=== PATIENT | female | born 1940 | race Caucasian/White ===

== ENCOUNTER → 2017-12-29 | Outpatient (CLI) | payer BC ==
[~2017-12-29] MED LIST: CLARITIN10 MG PO; HYDROCHLOROTHIA25 M1 PO; HYDROCORTISONE30 G9; LISINOPRIL10 MG PO; METHIMAZOLE10 MG PO; OXYBUTYNIN 5 MG5 M2 PO; RELAFEN750 MG PO; ULTRAM 50MG TAB50 MG PO; thyroid PO
--- NOTE | 2018-01-03 07:00 | PAINCON ---
[facility] [address] [place] [address] PAIN MANAGEMENT CONSULTATION Name: MP WATTS Room: [facility] Malena#: [id number] Admission: 12/29/17 Attend Phys: Fish Duran Discharge: Date of : 40 Report #: [id number] THIS REPORT FOR: //name// CC: Scottie Nascimento DATE OF SERVICE: 12/29/2017 The patient is a pleasant 77-year-old female, prior seen back in May for symptomatic lumbar radiculopathy. She had right lumbar radicular pain well treated with a single epidural injection at L5-S1. Somewhat lost to follow up, she returns to pain clinic today with a little different complaint. She notes pain in the contralateral, left hip, buttock and leg for the past 6 weeks. She denies antecedent trauma. She incidentally notes that she has been having some vein work done on the contralateral (right) leg. She notes that this left low back, hip pain is similar to the prior right-sided radicular pain she had had last summer. She notes the pain is exacerbated with standing, walking and bending. Denies any myelopathic symptoms. PHYSICAL EXAMINATION: Shows a 5-foot 4-inch, 263-pound female with elevated BMI of 45.2 kilograms per meter squared. Blood pressure is 159/73, pulse 76, respirations 16. Subjective pain score is 10 on VAS. She is taking ibuprofen for pain. Alert and oriented to person, place and time, judged to be a reasonable historian. Rises from the chair using the armrest. Gait is modestly antalgic. She is tender over the left SI, but has slight decreased left plantar flexion and lower extremity flexion strength. Positive straight leg raise on the left at 30 degrees. Diffuse tenderness across the low back. No discrete trigger points noted. Some hyperpathia about the right leg in the area where she has had her recent vein sclerosis for varicose veins. DIAGNOSTIC STUDIES: There are no recent diagnostic studies available at this time, again symptoms compatible with lumbar radiculopathy with positive neural tensioning symptoms. Prior lumbar radicular symptoms on the contralateral side, well treated with epidural injection last summer, prior similar radicular symptoms treated with epidural injections 3 and 6 years prior as well. ASSESSMENT: 1. Symptomatic lumbar radiculopathy by clinical exam and history. 2. Possible component of left sacroiliac mediated pain. 3. Morbid obesity. 4. Hypertension. 5. Bladder dysfunction, currently treated with oxybutynin. 6. Hyperthyroidism, treated with methimazole. RECOMMENDATION: [place] [address] PAIN MANAGEMENT CONSULTATION Name: MP WATTS Room: [facility] Malena#: [id number] Admission: 12/29/17 Attend Phys: Fish Duran Discharge: Date of : 40 Report #: [id number] 1. Continue ibuprofen. 2. Lumbar epidural injection under fluoroscopy today at L5-S1. 3. Core strengthening exercises discussed. Encouraged walking and stretching. She does have a component of myofascial pain and left SI mediated pain; recommend massage, stretching and exercise. 4. Epidural injection under fluoroscopy today at L5-S1. 5. Follow up in 4 weeks for reevaluation, may consider left SI joint injection if indicated clinically at that time. PROCEDURE: Lumbar epidural injection under fluoroscopy. PROCEDURE NOTE: After both written and informed consent to include risk of spinal cord damage, increased pain, weakness and dural puncture, the patient was taken to the fluoroscopy suite, placed in the prone position. After sterile prep and drape, a skin wheal with lidocaine was raised. A 22-gauge epidural Tuohy needle was inserted in the midline at L5-S1 with good loss to resistance. Negative aspiration for cerebrospinal fluid or blood was noted. Then 1 mL of Omnipaque under biplanar fluoroscopy showed good spread within the epidural space. This was followed with 80 mg of triamcinolone plus 1 mL of 1.5% preservative-free Xylocaine, 0.5 mL Xylocaine was then injected to flush the needle; it was removed. The patient was monitored for an appropriate period of time and discharged in good and stable condition. <ELECTRONICALLY SIGNED> By: Tereso Nascimento DO 01/03/18 0700 [id number] Nascimento DO /nt
== END | disposition home or self-care (01) ==
LOC: M.PC 01:33
DX: M54.16 Radiculopathy, lumbar region (principal); E66.01 Morbid (severe) obesity due to excess calories; I10 Essential (primary) hypertension; E05.90 Thyrotoxicosis, unspecified without thyrotoxic crisis or storm; Z79.899 Other long term (current) drug therapy; Z68.42 Body mass index [BMI] 45.0-49.9, adult

== ENCOUNTER → 2019-03-16 | Outpatient (CLI) | payer BC ==
[~2019-03-16] MED LIST changes: +FLONASE 0.05%50 MCG NASAL; +REFLUX MED
--- NOTE | ~2019-03-16 | PAINCON ---
[address] [address] PAIN MANAGEMENT CONSULTATION Name: MP WATTS Cl Room: [facility] Malena#: [id number] Admission: 03/16/19 Attend Phys: Anna Solis MD Discharge: Date of : 40 Report #: [id number] THIS REPORT FOR: //name// CC: Scottie Kang DATE OF SERVICE: 03/16/2019 CHIEF COMPLAINT: Low back pain with pain down into the low back area. I would like to consider another epidural injection. HISTORY: The patient is a 78-year-old female who has been seen and followed in the Pain Clinic by Dr. Tereso Nascimento. This is my first visit with the patient. She has had some problems with lumbar radiculopathy. She has undergone epidural steroid injection and found those to be helpful. She has also had some sacral SI joint mediated pain. She has now noted some pain and discomfort in her left shoulder. She is also having some low back and generalized arthritic pains over the last 2 years. HISTORY OF PRESENT ILLNESS: The patient noticed onset of sinus problems. Her daughter had similar problems about few weeks ago. Now, she is having sinus problems. She has noted some drainage in the posterior portion of her nose and down into her throat. She is also having some sounds in her ears secondary to what feels like infection. She does wear hearing aids. She feels tired and somewhat worn out. States that in the morning that she really feels drained. She is having pain in her back. She is contemplating going on a trip. She has seen her primary. She has been treated with an antibiotic. She is on about day #5. Still feels that her pain is problematic. ALLERGIES: No known drug allergies. CURRENT MEDICATIONS: Lisinopril 10 mg daily, Claritin 10 mg, methimazole 10 mg, oxybutynin 5 mg, antibiotics for sinus infection, reflux medication, Flonase. PAST MEDICAL HISTORY: Tuberculosis, hypertension, gallbladder disease, thyroid disease, joint disease/arthritis, left ear surgery due to chronic infections, degenerative joint disease, hypothyroidism with Graves' disease, right-sided thyroid nodule. PAST SURGICAL HISTORY: Two knee surgeries, 1998 and 2011, cholecystectomy, wrist surgery, ear surgery, hysterectomy, bladder tack up, bladder lift. SOCIAL HISTORY: The patient is retired. REVIEW OF SYSTEMS: Generally has noted recent weight changes, wears glasses, [place] [address] PAIN MANAGEMENT CONSULTATION Name: MP WATTS Room: [facility]#: [id number] Admission: 03/16/19 Attend Phys: Anna Solis MD Discharge: Date of : 40 Report #: [id number] glaucoma/cataracts, hearing loss, ringing in the ears, wears hearing aids, and sore throat changes. LABORATORY DATA: No new laboratory values are available at the time of our interview. PAIN CLINIC ASSESSMENT/PQRS: 1. The patient does have some osteoarthritis. She has had knee surgery in 2011. The patient is not being treated for rheumatoid arthritis. 2. Height 5 feet 5 inches, weight 264 pounds, BMI is 44. 3. Vital Signs: Blood pressure 183/56, heart rate is 84, respiratory rate 16, room air saturation on 94%, temperature 98.4. 4. Pain intensity, 10/10. 5. Fall history: The patient has not fallen in the last 3 months. 6. Blood thinner. The patient is not on a blood thinning medication. 7. Hypertension. The patient is being treated for hypertension. 8. Opioids greater than 6 weeks. The patient is not receiving opioid medications. 9. Risk assessment tool, low for opioid use. 10. Functional assessment tool. 11. Recreational drug use. The patient denies. 12. Tobacco: The patient denies. 13. Alcohol: The patient denies use of alcoholic beverages. PHYSICAL EXAMINATION: GENERAL: The patient is a well-developed, well-nourished female. Appears her stated age. She is alert and oriented x 3. Affect is appropriate. Speech is fluent. HEENT: Normocephalic, atraumatic. Extraocular eye muscles intact. Sclerae nonicteric. The patient has bilateral hearing aids in place. She complains of some discomfort in the posterior pharynx area. Notes some posterior drainage. Has experienced some feeling of fluid in her ears bilaterally. HEART: Regular rate. ABDOMEN: Protuberant. Bowel sounds present. EXTREMITIES: Upper extremity muscle strength is judged to be 5-/5 for the major muscle groups in the upper extremity. Lower extremity, the patient has pain and discomfort, which is radiating down to the lower portion of her back and history of lumbar radicular type pain. RECOMMENDATIONS: We discussed treatment options with the patient. She does have a history of lumbar radicular pain. At this point, she is on an antibiotic. We went through a very basic explanation of why one would consider holding off on the epidural injection given that this might decrease one's ability to fight off on bacteria. She will continue and finish her antibiotic. At that time, she will return to the pain clinic with possibility of undergoing an epidural steroid injection. She has had hopes [place] [address] PAIN MANAGEMENT CONSULTATION Name: MP WATTS Room: [facility]#: [id number] Admission: 03/16/19 Attend Phys: Cl. Carson Solis MD Discharge: Date of : 40 Report #: [id number] daughter. This may need to be put on hold. The date they will leave was 03/24/2019. We would explained that it would be better that she make ensure that her infection was under control. We would like to thank you for letting us participate in her care. She will follow up in the future. By: [id number] 0003Cl. Carson Solis MD /nt
== END ==
LOC: M.PC 11:40
DX: M54.5 Low back pain (principal); M19.90 Unspecified osteoarthritis, unspecified site; M06.9 Rheumatoid arthritis, unspecified; I10 Essential (primary) hypertension; Z79.891 Long term (current) use of opiate analgesic; Z79.899 Other long term (current) drug therapy; E07.89 Other specified disorders of thyroid; Z90.49 Acquired absence of other specified parts of digestive tract; Z90.710 Acquired absence of both cervix and uterus